=== PATIENT | female | born 1990 | race Hispanic/Latino ===

== ENCOUNTER 2021-12-06 14:00 | Emergency (ER) | payer SELFPAY ==
--- NOTE | 2021-12-06 17:30 | Emergency Department Report ---
ED General Adult HPI - General Chief complaint: Psych Stated complaint: SUICIDE ATTEMPT Time Seen by Provider: 12/06/21 15:11 Source: patient, EMS Mode of arrival: Stretcher Limitations: No Limitations - History of Present Illness Initial comments: patient presents by EMS 2/2 inflicting wounds on herself. Patient was agitated and fighting with the police. Patient had been cutting her arms on both sides., States she wants to kill herself. Denies visual and auditory hallucinations. Last tetanus shot was 2 years ago and she has had > 3 in her life time. - Related Data Allergies Allergy/AdvReac Type Severity Reaction Status Date / Time No Known Allergies Allergy Unverified 12/06/21 14:10 ED Review of Systems ROS: Stated complaint: SUICIDE ATTEMPT Other details as noted in HPI Comment: All other systems reviewed and negative Constitutional: denies: chills, diaphoresis ED Past Medical Hx - Past Medical History Hx Psychiatric Treatment: Yes ED Physical Exam - General Limitations: No Limitations General appearance: alert, in no apparent distress - Head Head exam: Present: atraumatic, normocephalic - Eye Eye exam: Present: PERRL, EOMI - ENT ENT exam: Present: mucous membranes moist, other (airway patent) - Neck Neck exam: Present: other (supple; no JVD) - Respiratory Respiratory exam: Present: other (good air entry, nml I:E, CTAB, no use of MURIEL) - Cardiovascular Cardiovascular Exam: Present: regular rate. Absent: rubs, gallop - GI/Abdominal GI/Abdominal exam: Present: soft, normal bowel sounds. Absent: distended, tenderness - Extremities Exam Extremities exam: Present: full ROM, other (no deformity in all extremities) - Back Exam Back exam: Present: other (no step offs). Absent: tenderness - Neurological Exam Neurological exam: Present: alert, oriented X3, CN II-XII intact. Absent: motor sensory deficit - Psychiatric Psychiatric exam: Present: suicidal ideation, other (labile affect; no obvius delusions or hallucinations) - Skin Skin exam: Present: other (multiple superificial horizontal excoriations in upper extremities bilaterally) ED Medical Decision Making - Lab Data Result diagrams: 12/06/21 18:38 12/06/21 18:38 Laboratory Tests 04/28/22 04/28/22 04/28/22 18:38 18:38 18:38 WBC 8.2 RBC 4.15 Hgb 12.8 Hct 37.2 MCV 90 MCH 31 MCHC 34 RDW 11.8 L Plt Count 223 Lymph % (Auto) 24.8 [place] % (Auto) 6.6 Eos % (Auto) 0.7 Baso % (Auto) 0.9 Lymph # (Auto) 2.0 [place] # (Auto) 0.5 Eos # (Auto) 0.1 Baso # (Auto) 0.1 Seg Neutrophils % 67.0 Seg Neutrophils # 5.5 Sodium 140 Potassium 3.6 Chloride 105.7 Carbon Dioxide 21 L Anion Gap 17 BUN 6 L Creatinine 0.7 Estimated GFR > 60 BUN/Creatinine Ratio 9 Glucose 95 Calcium 9.6 Total Bilirubin 0.60 AST 19 ALT 11 Alkaline Phosphatase 44 Total Protein 6.4 Albumin 4.6 Albumin/Globulin Ratio 2.6 Salicylates < 0.3 L Acetaminophen Plasma/Serum Alcohol 12/06/21 12/06/21 18:38 18:38 WBC RBC Hgb Hct MCV MCH MCHC RDW Plt Count Lymph % (Auto) [place] % (Auto) Eos % (Auto) Baso % (Auto) Lymph # (Auto) [place] # (Auto) Eos # (Auto) Baso # (Auto) Seg Neutrophils % Seg Neutrophils # Sodium Potassium Chloride Carbon Dioxide Anion Gap BUN Creatinine Estimated GFR BUN/Creatinine Ratio Glucose Calcium Total Bilirubin AST ALT Alkaline Phosphatase Total Protein Albumin Albumin/Globulin Ratio Salicylates Acetaminophen 5.0 L Plasma/Serum Alcohol < 0.01 U tox, UPT pending - Medical Decision Making 1013 signed; not yet medically cleared; psych consulted. Critical care attestation.: If time is entered above; I have spent that time in minutes in the direct care of this critically ill patient, excluding procedure time. ED Disposition Clinical Impression: Suicidal ideation, Excoriation Disposition: 30 STILL A PATIENT Is pt being admited?: No Does the pt Need Aspirin: No Condition: Stable Time of Disposition: 23:55 (Patient care transferred to Dr. Bhakta (oncoming ER doc). Sign out was given by me to him. )
[2021-12-06 19:07] LABS: Basophils # (Auto) 0.1 K/mm3 (0.0-0.1); Basophils % (Auto) 0.9 % (0.0-1.8); Eosinophils # (Auto) 0.1 K/mm3 (0.0-0.4); Eosinophils % (Auto) 0.7 % (0.0-4.3); Hematocrit 37.2 % (30.3-42.9); Hemoglobin 12.8 gm/dl (10.1-14.3); Lymphocytes % (Auto) 24.8 % (13.4-35.0); Mean Corpuscular HGB Conc 34 % (30-34); Mean Corpuscular Volume 90 fl (79-97); Monocytes # (Auto) 0.5 K/mm3 (0.0-0.8); Monocytes % (Auto) 6.6 % (0.0-7.3); Platelet Count 223 K/mm3 (140-440); Red Blood Count 4.15 M/mm3 (3.65-5.03); Red Cell Distribution Width 11.8 % (13.2-15.2)
[2021-12-06 19:19] LABS: Alanine Aminotransferase 11 units/L (7-56); Albumin 4.6 g/dL (3.9-5); Blood Urea Nitrogen 6 mg/dL (7-17); Calcium 9.6 mg/dL (8.4-10.2); Hemolysis Index 7
[2021-12-06 19:44] LABS: BUN/Creatinine Ratio 9
[2021-12-07] MEDS ORDERED: LORazepam 2 MG/ML VIAL IM PRN (09:58)
[2021-12-07] MEDS ORDERED: HALOPERIDOL LACTATE 5 MG/1 ML INJ IM PRN (09:58)
--- NOTE | 2021-12-07 10:01 | Event Note ---
Date: 12/07/21 Patient is seen and examined. She is asking for something to drink. She is pending a psychiatric consultation. Urinalysis, drug screen, COVID swab and test are pending. The patient does not have vital signs documented. This patient is on a 1013 and is suicidal, and therefore lacks decision-making capacity to refuse vital signs. As needed medications are ordered, nursing team is instructed to obtain a complete set of vital signs. Vital Signs 12/07/21 09:00 Temperature 98.5 F Pulse Rate 90 Respiratory 18 Rate Blood Pressure 121/61 [Right] O2 Sat by Pulse 97 Oximetry Lab Results 12/06/21 12/06/21 12/06/21 Range/Units 18:38 18:38 18:38 WBC 8.2 (4.5-11.0) K/mm3 RBC 4.15 (3.65-5.03) M/mm3 Hgb 12.8 (10.1-14.3) gm/dl Hct 37.2 (30.3-42.9) % MCV 90 (79-97) fl MCH 31 (28-32) pg MCHC 34 (30-34) % RDW 11.8 L (13.2-15.2) % Plt Count 223 (140-440) K/mm3 Lymph % (Auto) 24.8 (13.4-35.0) % [place] % (Auto) 6.6 (0.0-7.3) % Eos % (Auto) 0.7 (0.0-4.3) % Baso % (Auto) 0.9 (0.0-1.8) % Lymph # (Auto) 2.0 (1.2-5.4) K/mm3 [place] # (Auto) 0.5 (0.0-0.8) K/mm3 Eos # (Auto) 0.1 (0.0-0.4) K/mm3 Baso # (Auto) 0.1 (0.0-0.1) K/mm3 Seg Neutrophils % 67.0 (40.0-70.0) % Seg Neutrophils # 5.5 (1.8-7.7) K/mm3 Sodium 140 (137-145) mmol/L Potassium 3.6 (3.6-5.0) mmol/L Chloride 105.7 (98-107) mmol/L Carbon Dioxide 21 L (22-30) mmol/L Anion Gap 17 mmol/L BUN 6 L (7-17) mg/dL Creatinine 0.7 (0.6-1.2) mg/dL Estimated GFR > 60 ml/min BUN/Creatinine Ratio 9 % Glucose 95 (65-100) mg/dL Calcium 9.6 (8.4-10.2) mg/dL Total Bilirubin 0.60 (0.1-1.2) mg/dL AST 19 (5-40) units/L ALT 11 (7-56) units/L Alkaline Phosphatase 44 (35-129) units/L Total Protein 6.4 (6.3-8.2) g/dL Albumin 4.6 (3.9-5) g/dL Albumin/Globulin Ratio 2.6 % Salicylates < 0.3 L (2.8-20.0) mg/dL Acetaminophen (10.0-30.0) ug/mL Plasma/Serum Alcohol (0-0.07) % 12/06/21 12/06/21 Range/Units 18:38 18:38 WBC (4.5-11.0) K/mm3 RBC (3.65-5.03) M/mm3 Hgb (10.1-14.3) gm/dl Hct (30.3-42.9) % MCV (79-97) fl MCH (28-32) pg MCHC (30-34) % RDW (13.2-15.2) % Plt Count (140-440) K/mm3 Lymph % (Auto) (13.4-35.0) % [place] % (Auto) (0.0-7.3) % Eos % (Auto) (0.0-4.3) % Baso % (Auto) (0.0-1.8) % Lymph # (Auto) (1.2-5.4) K/mm3 [place] # (Auto) (0.0-0.8) K/mm3 Eos # (Auto) (0.0-0.4) K/mm3 Baso # (Auto) (0.0-0.1) K/mm3 Seg Neutrophils % (40.0-70.0) % Seg Neutrophils # (1.8-7.7) K/mm3 Sodium (137-145) mmol/L Potassium (3.6-5.0) mmol/L Chloride (98-107) mmol/L Carbon Dioxide (22-30) mmol/L Anion Gap mmol/L BUN (7-17) mg/dL Creatinine (0.6-1.2) mg/dL Estimated GFR ml/min BUN/Creatinine Ratio % Glucose (65-100) mg/dL Calcium (8.4-10.2) mg/dL Total Bilirubin (0.1-1.2) mg/dL AST (5-40) units/L ALT (7-56) units/L Alkaline Phosphatase (35-129) units/L Total Protein (6.3-8.2) g/dL Albumin (3.9-5) g/dL Albumin/Globulin Ratio % Salicylates (2.8-20.0) mg/dL Acetaminophen 5.0 L (10.0-30.0) ug/mL Plasma/Serum Alcohol < 0.01 (0-0.07) % Psychiatric team have recommended discharge and discontinuation of 1013. Patient deemed medically suitable for psychiatric consultation during her initial evaluation. She has not endorsed any irritative or obstructive urinary symptoms.
[2021-12-07 11:42] VITALS: BP 121/61
--- NOTE | 2021-12-07 11:58 | Consultation ---
History of Present Illness - Reason for Consult Consult date: 12/07/21 Reason for consult: suicidal ideation - History of Present Psychiatric Illness ED Note: patient presents by EMS 2/2 inflicting wounds on herself. Patient was agitated and fighting with the police. Patient had been cutting her arms on both sides., States she wants to kill herself. Denies visual and auditory hallucinations. Last tetanus shot was 2 years ago and she has had > 3 in her l kat time. The patient is a 31 year old female with history of ADHD, and bipolar disorder. The patient reports that she has been weaning off Latuda for the past couple of days due to side effects. She states that she recently moved to [place] and was seen by a psychiatrist who started her on Latuda. The patient reports doing well. she denies any current suicidal/homicidal ideation and denies hallucinations. PAST PSYCHIATRIC HISTORY Diagnoses: ADHD, Bipolar Suicide attempts or Self-harm behavior: Yes- cutter Prior psychiatric hospitalizations: Yes Substance Abuse history: marijuana, ecstasy, Acid Previous psychiatric medications tried: could not recall Outpatient treatment: Unknown PAST MEDICAL HISTORY: None reported Family Psychiatric History: None reported or documented SOCIAL HISTORY Marital Status: Single Living Arrangements: Lives with a friend Employment Status: unemployed Access to guns/weapons: Denies Education: some college History of Abuse: Yes Legal History: Unknown REVIEW OF SYSTEMS Constitutional: Negative for weight loss ENT: Negative for stridor Respiratory: Negative for cough or hemoptysis All other systems reviewed and are negative MENTAL STATUS EXAMINATION General Appearance and Behavior: Age appropriate, good hygiene, wearing appropriate clothes, good eye contact, anxious, cooperative Cooperation: Participating/engaged Psychomotor Behavior: Psychomotor normal Mood:good Affect and affective range: congruent with stated mood Thought Process: Goal directed Thought Content: Reality oriented Speech: normal tone and pace Suicidal Ideation: Denies Homicidal Ideation: Denies Hallucinations: Denies Delusions: None Impulse Control: Limited Insight and Judgment: Limited insight and judgment Memory: Limited Attention: attentive Orientation: Alert, oriented Diagnoses: Hx of Bipolar Disorder Treatment Plan DC 1013 Continue home meds PSYCHOTHERAPY: Supportive psychotherapy provided MEDICAL: Per primary team DELIRIUM PRECAUTIONS: Please re-orient patient frequently, keep lights on during the day, and minimize benzodiazepines and opiates as these medications could worsen patient's confusion. WATER TRUCK DRIVER: Per medical team DISPOSITION: Do not recommend acute psychiatric inpatient treatment. Chemical Reclamation Equipment Operator will provide patient with outpatient resources. Will sign off. Thanks. Thank you for the consult. Case staffed with Dr. Jean Medications and Allergies Allergies Allergy/AdvReac Type Severity Reaction Status Date / Time No Known Allergies Allergy Unverified 12/06/21 14:10 Active Meds: Active Medications Haloperidol Lactate (Haloperidol Lactate 5 Mg/1 Ml Inj) 5 mg IM Q6HR PRN PRN Reason: Agitation Lorazepam (Lorazepam 2 Mg/Ml Vial) 2 mg IM Q4HR PRN PRN Reason: Agitation Mental Status Exam - Vital signs Last Vital Signs Temp 98.5 F 12/07/21 09:00 Pulse 90 12/07/21 09:00 Resp 18 12/07/21 09:00 BP 121/61 12/07/21 09:00 Pulse Ox 97 12/07/21 09:00 Results Result Diagrams: 12/06/21 18:38 12/06/21 18:38 Abnormal lab results 12/06/21 12/06/21 12/06/21 Range/Units 18:38 18:38 18:38 RDW 11.8 L (13.2-15.2) % Carbon Dioxide 21 L (22-30) mmol/L BUN 6 L (7-17) mg/dL Salicylates < 0.3 L (2.8-20.0) mg/dL Acetaminophen (10.0-30.0) ug/mL 12/06/21 Range/Units 18:38 RDW (13.2-15.2) % Carbon Dioxide (22-30) mmol/L BUN (7-17) mg/dL Salicylates (2.8-20.0) mg/dL Acetaminophen 5.0 L (10.0-30.0) ug/mL All other labs normal.
== END 2021-12-07 13:32 | disposition home or self-care (01) ==
LOC: ED 14:00
DX: T14.8XXA Other injury of unspecified body region, initial encounter (principal); R45.851 Suicidal ideations; X58.XXXA Exposure to other specified factors, initial encounter; Y93.89 Activity, other specified; Y92.89 Other specified places as the place of occurrence of the external cause; Y99.8 Other external cause status
CPT/HCPCS: 36415; 80053; 80320; 85025; 99283; G0480